=== PATIENT | female | born 1980 | race Caucasian/White ===

== ENCOUNTER 2022-10-13 08:12 | Emergency (ER) | payer MEDICAID, SELFPAY ==
[2022-10-13 08:35] VITALS: BP 124/83; PULSE 108; RESP 18; TEMP 36.6; O2SAT 98; BMI 37.8
[2022-10-13 11:00] VITALS: PULSE 104; RESP 16; TEMP 37; O2SAT 99
--- NOTE | 2022-10-13 11:30 | ED_ITS ---
HPI - General Adult General Time Seen by Provider: 11:30 Date Seen: 10/13/22 Chief complaint: Ear/Nose/Throat Problem Stated complaint: Ear pain Time Seen by Provider: 10/13/22 10:52 Source: patient Mode of arrival: ambulatory Limitations: no limitations History of Present Illness HPI narrative: Patient is a 42-year-old female with severe left earache body aches chills fever. She is generally quite healthy, has no allergies, is not . The patient reports she has had some low-grade chills fever. No real cough no nuchal rigidity, no skin rashes. No immediate family member sick. Related Data Home Medications Medication Instructions Recorded Confirmed amlodipine 10 mg tablet mg 10/13/22 Previous Rx's Medication Instructions Recorded cephalexin 500 mg capsule 500 mg PO TID 7 days #21 caps 10/13/22 ketorolac 10 mg tablet 10 mg PO TID PRN pain 5 days #10 10/13/22 tabs Allergies Allergy/AdvReac Type Severity Reaction Status Date / Time No Known Drug Allergies Allergy Verified 10/13/22 08:40 PFSH PFSH Social History Smoking Status: Never smoker Do you use any of these nicotine containing products: None Second hand tobacco smoke exposure: No How often do you have a drink containing alcohol: never AUDIT-C Alcohol total score: 0 Non-prescribed substance use: denies use service: No Exam Narrative: Exam Narrative: Objective: Vital signs unremarkable O2 sat excellent Left otitis media right TM clear throat clear neck is supple good peripheral perfusion noted COVID/influenza/RSV swab done I suspect the patient has influenza plus the left has media Const: Vital Signs, click to edit/add: Vital Signs - 24 hr 10/13/22 08:35 10/13/22 11:00 Temperature 97.9 F 98.6 F Pulse Rate [Right Pulse Oximeter] 108 H 104 H Respiratory Rate 18 16 Blood Pressure [Ri ght Upper Arm] 124/83 Pulse Oximetry 98 99 Oxygen Delivery Me thod Room Air Room Air Course Vital Signs Vital signs: Initial Vital Signs Temperature 97.9 F 10/13/22 08:35 Temperature Source Temporal Artery Scan 10/13/22 08:35 Pulse Rate 108 H 10/13/22 08:35 Pulse Rhythm 10/13/22 08:35 Respiratory Rate 18 10/13/22 08:35 Blood Pressure 124/83 10/13/22 08:35 Blood Pressure Mean 96 10/13/22 08:35 Blood Pressure Position Sitting 10/13/22 08:35 Pulse Oximetry 98 10/13/22 08:35 Oxygen Delivery Method 10/13/22 08:35 Vital Signs Temperature 97.9 F 10/13/22 08:35 Pulse Rate 108 H 10/13/22 08:35 Respiratory Rate 18 10/13/22 08:35 Blood Pressure 124/83 10/13/22 08:35 Pulse Oximetry 98 10/13/22 08:35 Oxygen Delivery Method 10/13/22 08:35 Temperature 98.6 F 10/13/22 11:00 Pulse Rate 104 H 10/13/22 11:00 Respiratory Rate 16 10/13/22 11:00 Blood Pressure 124/83 10/13/22 08:35 Pulse Oximetry 99 10/13/22 11:00 Oxygen Delivery Method 10/13/22 11:00 Medical Decision Making MDM Narrative Medical decision making narrative: Will fax in Keflex 500 t.i.d. x7 days, Toradol as needed for discomfort and pain from the ear. Tylenol as needed, fluids, update regular doctor in the next 2 days as needed Lab Data Labs: Lab Results 10/13/22 Range/Units 11:26 SARS-CoV-2 (PCR) Negative SARS-CoV-2 (Negative) Influenza Type A (PCR) Negative PCR FLU A (Negative) Influenza Type B (PCR) Negative PCR FLU B (Negative) RSV (PCR) Negative PCR RSV (Negative) Discharge Plan Discharge Clinical Impression: Acute viral syndrome, Otitis media Patient Disposition: Home, Self-Care Condition: Stable Additional Instructions: Rest, light activity, Toradol as needed for pain and discomfort, Keflex x7 days for ear infection. We will call back with results of tests today. Update regular doctor in couple days if not better. Light activity light fluid in the interim Activity Level: Light activity Discharge Diet: Regular Prescriptions: New ketorolac 10 mg tablet 10 mg PO TID PRN (Reason: pain) 5 Days Qty: 10 0RF cephalexin 500 mg capsule 500 mg PO TID 7 Days Qty: 21 0RF No Action amlodipine 10 mg tablet Label Comments: TAKE 1 TABLET BY MOUTH EVERY DAY Follow Up/Referrals: Nancy Flores MD [Primary Care Provider] - Stand Alone [facility]
[2022-10-13 12:27] LABS: PCR FLU A Negative PCR FLU A (Negative); PCR FLU B Negative PCR FLU B (Negative); PCR RSV Negative PCR RSV (Negative)
[2022-10-13 12:29] LABS: SARS PCR* Negative SARS-CoV-2 (Negative)
--- NOTE | 2022-10-13 14:16 | ED.NURSE ---
Results of COVID/Flu/RSV were called to patient. Had no further questions at this time.
== END 2022-10-13 11:39 | disposition home or self-care (01) ==
PROVIDERS: Emergency Provider Family Medicine; PCP Family Medicine
DX: H66.92 Otitis media, unspecified, left ear (principal)
CPT/HCPCS: 87502; 87634; 87635; 99283

== ENCOUNTER 2023-07-02 06:16 | Day surgery (SDC) | payer MEDICAID, SELFPAY ==
[2023-07-02] VITALS (12 sets, daily range): BP systolic 105–132; BP diastolic 60–84; PULSE 56–82; RESP 16–18; TEMP 36.6–36.8; O2SAT 93–98; BMI 43.7
[2023-07-02] MEDS: LACTATED RINGERS 1000 ML 1,000 ML 100 ML IV (06:45)
[2023-07-02] MEDS: SODIUM CHLORIDE 0.9 % (FLUSH) 10 ML SYRINGE IVF (06:45)
[2023-07-02 07:02] LABS: Ur HCG Qualitative* Negative (Negative)
[2023-07-02 07:06] LABS: Hemoglobin* 12.6 gm/dL (12.0-16.0)
[2023-07-02 07:23] LABS: Creatinine* 0.5 mg/dL (0.5-1.5); Est. Creatinine Clearance* 118.77; Estimated Glomerular Filt Rate 119 ml/min
[2023-07-02] MEDS: BUPIVACAINE 0.5 %/EPI 1:200K 30 ML INJECTION (11:00)
--- NOTE | 2023-07-02 11:26 | W.ANESCHARGE ---
Anesthesia Charges Start Date/Time Anesthesia Start Date: 07/02/23 Anesthesia Start Time: 10:18 Stop Date/Time Anesthesia Stop Date: 07/02/23 Anesthesia Stop Time: 11:31
--- NOTE | 2023-07-02 11:34 | W.ANESCHARGE ---
Anesthesia Charges Start Date/Time Anesthesia Start Date: 07/02/23 Anesthesia Start Time: 10:18 Stop Date/Time Anesthesia Stop Date: 07/02/23 Anesthesia Stop Time: 11:31
[2023-07-02] MEDS: IBUPROFEN 600 MG TABLET PO (12:27)
--- NOTE | 2023-07-02 14:42 | P.PCNOB_ITS ---
Procedure Pre-op/Post-op diagnoses: Pre-Op/Post-Op Diagnoses Operation Date: 07/02/23 07:15 <No data on this case meets the specified criteria> Procedure: Procedures Operation Date: 07/02/23 07:15 Actual Procedure Side Surgeon p Laparoscopic Bilateral Salpingectomy Bilateral Shonda Harrison MD Narrative: Preoperative diagnosis: Astrid is a 42-year-old who desires permanent sterilization. Postoperative diagnosis: Same. Procedure: Laparoscopic bilateral salpingectomy Anesthesia: General endotracheal Surgeon: Shonda Harrison MD Geographic Information Systems Manager: Melody Shea MD EBL: <5 mL Urine output: 5 mL clear urine Specimen: Bilateral fallopian tubes to pathology. Findings: On exam under anesthesia: The uterus was anteverted, 6 week size, mobile, with out masses or nodularity palpable. Adnexa were without mass or fullness bilaterally. On laparoscopy: The uterus, bilateral fallopian tubes and ovaries all appeared normal. Minimal filmy adhesions of descending colon epiploica on left side wall. Procedure: Patient was taken to the operating room where general anesthetic was found to be adequate. She was placed in the dorsal lithotomy position and an exam under anesthesia was performed with findings stated above. She was then prepped and draped in a normal sterile manner. Bladder was drained with red rubber catheter. A sponge stick was placed intravaginally to act as uterine manipulator. Attention was then turned to performing the laparoscopic portion of the procedure. All incisions were injected with 0.5% Marcaine prior to incision. A vertical 5 mm infraumbilical, incision, was made and a 5 mm trocar placed under direct visualization with the laparoscope. The abdomen was then insufflated with carbon dioxide gas to a pressure of 15 mm of mercury. To bilateral lower quadrant trocars were then placed under direct visualization. Both were placed approximately 3-4 finger breaths medial to the ischial crests. A 4th was a hand' s breath superior to and slightly medial to the left inferior port. All ports were 5 mm. A diagnostic laparoscopy was then performed with findings stated above. The left fallopian tube was grasped with a sliding grasper. The left fallopian tube was removed from the broad ligament using the Halo dissecting forceps starting at the fimbriated end of the tube. Sequential pedicles were then formed to the level of the cornua. The tube was then removed at the cornua and removed from the abdomen. The right fallopian tube was removed in a similar manner. Excellent hemostasis was noted of all pedicles on high flow and low flow. The trocars were then removed under direct visualization. The CO2 gas was allowed to escape the infraumbilical port prior to its removal. All incisions were reapproximated using 4-0 Monocryl in a running subcuticular manner. LiquiBand skin adhesive was then applied and adhesive dressings applied over each incision. The sponge stick uterine manipulator was removed. The patient tolerated this procedure well. Sponge, lap and instrument counts were correct x2 at the end of the procedure and the patient was taken to the recovery area in stable condition.
== END 2023-07-02 13:14 | disposition home or self-care (01) ==
LOC: OR 06:16
PROVIDERS: PCP Family Medicine; Visit Provider Obstetrics & Gynecology
PROC: (CPT 58661; principal; 2023-07-02 10:15)
DX: Z30.2 Encounter for sterilization (principal)
CPT/HCPCS: 58661; 00840; 00851; 36415; 81025; 82565; 85018; 88302; A4344; A9270; J0330; J1100; J2405; J2704; J2710; J3010; J3490; J7120

== ENCOUNTER 2025-09-29 09:35 | Outpatient (CLI) | payer MEDICAID, SELFPAY ==
--- NOTE | 2025-09-29 11:16 | P.ANES_ITS ---
Anesthesia Charges Start Date/Time Anesthesia Start Date: 09/29/25 Anesthesia Start Time: 10:48 Stop Date/Time Anesthesia Stop Date: 09/29/25 Anesthesia Stop Time: 11:17 Coding CPT Codes CPT Codes: ANES LWR INTST NDSC NOS - 79864 ([id number]) QK - COOLING SYSTEM OPERATOR 2-4 CNCRNT ANES PROC, QX - GEAR STRAIGHTENER SVC W/ MED DIRECTION, P3 - PATIENT W/SEVERE SYS DISEASE
--- NOTE | 2025-09-29 11:16 | W.ANESCHARGE ---
Anesthesia Charges Start Date/Time Anesthesia Start Date: 09/29/25 Anesthesia Start Time: 10:48 Stop Date/Time Anesthesia Stop Date: 09/29/25 Anesthesia Stop Time: 11:17 Coding CPT Codes CPT Codes: ANES LWR INTST NDSC NOS - 60312 ([id number]) QK - ERP DEVELOPER 2-4 CNCRNT ANES PROC, QX - ENGINE REPAIRER SERVICE SVC W/ MED DIRECTION, P3 - PATIENT W/SEVERE SYS DISEASE
--- NOTE | 2025-09-29 11:18 | P.ANES_ITS ---
Anesthesia Charges Start Date/Time Anesthesia Start Date: 09/29/25 Anesthesia Start Time: 10:48 Stop Date/Time Anesthesia Stop Date: 09/29/25 Anesthesia Stop Time: 11:17 Coding CPT Codes CPT Codes: ANES LWR INTST NDSC NOS - [id number] ([id number]) P3 - PATIENT W/SEVERE SYS DISEASE, QK - SHANK RANDER 2-4 CNCRNT ANES PROC, QX - INTERNAL SALES ENGINEER SVC W/ MD MED DIRECTION
--- NOTE | 2025-09-29 11:18 | W.ANESCHARGE ---
Anesthesia Charges Start Date/Time Anesthesia Start Date: 09/29/25 Anesthesia Start Time: 10:48 Stop Date/Time Anesthesia Stop Date: 09/29/25 Anesthesia Stop Time: 11:17 Coding CPT Codes CPT Codes: ANES LWR INTST NDSC NOS - 05808 ([id number]) P3 - PATIENT W/SEVERE SYS DISEASE, QK - BATTER MIXER 2-4 CNCRNT ANES PROC, QX - WET PRESS TENDER SVC W/ MD MED DIRECTION
== END 2025-09-29 09:36 | disposition home or self-care (01) ==
LOC: OP CLINIC 09:37
PROVIDERS: PCP Family Medicine; Visit Provider Internal Medicine Gastroenterology
DX: Z12.11 Encounter for screening for malignant neoplasm of colon (principal); D12.5 Benign neoplasm of sigmoid colon; K57.30 Diverticulosis of large intestine without perforation or abscess without bleeding
CPT/HCPCS: 00811; 00812; 45385; J2704